=== PATIENT | male | born 1965 | race Caucasian/White ===

== ENCOUNTER → 2022-09-21 10:13 | Outpatient (CLI) | payer BC, SELFPAY ==
--- NOTE | ~2022-09-21 | XR_ITS ---
Lumbosacral Spine: AP and lateral views Clinical History: Pain Findings: The normal lordotic curve is maintained. The vertebral bodies and posterior elements are i ntact. There are mild degenerative disc changes in the lumbar spine, most prominent at L3-L4. The sa croiliac joints are normally outlined. Impression: Minimal degenerative change, as above. Reviewed, dictated and finalized at location . Impression: Minimal degenerative change, as above.
== END ==
PROVIDERS: PCP Family Medicine; Visit Provider Family Medicine
DX: R20.2 Paresthesia of skin (principal); M54.50 Low back pain, unspecified
CPT/HCPCS: 72100

== ENCOUNTER → 2022-10-18 07:13 | Outpatient (CLI) | payer BC, SELFPAY ==
--- NOTE | ~2022-10-18 | MR_ITS ---
EXAMINATION: MR lumbar spine wo con DATE: 10/18/2022 07:39 INDICATION: Low back pain TECHNIQUE: Magnetic resonance imaging (MRI) of the lumbar spine was performed without intravenous con trast. Sequences included sagittal T2-weighted FSE, sagittal T2-weighted FS FSE, sagittal T1-weighted FSE, and axial T2-weighted FSE. COMPARISON: None FINDINGS: 4 degrees lumbar levocurvature. Sagittal alignment is normal. Vertebral body heights are normal. Nor mal marrow signal. Mild disc desiccation and mild disc height loss with annular fissure at L3-L4. Min imal disc desiccation and minimal disc height loss at L4-L5. The conus medullaris terminates at L2. T here is normal signal in the caudal spinal cord. Paravertebral soft tissues are unremarkable. The fol lowing disc levels are specifically discussed: T12-L1: The disc does not extend beyond the endplate margin. There is mild bilateral facet joint oste oarthritis. There is no neural foraminal stenosis. There is no central canal stenosis. L1-L2: The disc does not extend beyond the endplate margin. There is mild bilateral facet joint osteo arthritis. There is no neural foraminal stenosis. There is no central canal stenosis. L2-L3: Minimal bilateral foraminal disc protrusions. There is mild left and mild to moderate right fa cet joint osteoarthritis. There is mild bilateral neural foraminal stenosis. There is no central eden l stenosis. L3-L4: Disc is bulging. There is mild to moderate bilateral facet joint osteoarthritis. There is mild left and mild to moderate right neural foraminal stenosis. There is mild central canal stenosis. L4-L5: Disc is bulging. There is moderate bilateral facet joint osteoarthritis. There is moderate rig ht and mild to moderate left neural foraminal stenosis. There is mild central canal stenosis. L5-S1: Disc is minimally bulging. There is mild left and mild to moderate right facet joint osteoarth ritis. There is minimal bilateral neural foraminal stenosis. There is no central canal stenosis. IMPRESSION: 1. Mild lumbar spondylosis. Reviewed, dictated and finalized at location A. IMPRESSION: 1. Mild lumbar spondylosis.
== END ==
PROVIDERS: PCP Family Medicine; Visit Provider Family Medicine
DX: R20.2 Paresthesia of skin (principal); R20.9 Unspecified disturbances of skin sensation; M47.896 Other spondylosis, lumbar region
CPT/HCPCS: 72148

== ENCOUNTER 2023-09-09 15:28 | Outpatient (CLI) | payer BC, SELFPAY ==
--- NOTE | ~2023-09-09 | MR_ITS ---
EXAMINATION: MR brain/brain stem wo/w con DATE: 09/09/2023 16:27 INDICATION: Short-term memory loss TECHNIQUE: Magnetic resonance imaging (MRI) of the brain and brainstem was performed without and with 20 mL Multihance intravenous contrast. Sequences included sagittal and axial T1-weighted SE, axial d iffusion-weighted FS SE, axial T2*-weighted GRE, axial T2-weighted FLAIR, and axial T2-weighted FSE. Postcontrast axial and coronal T1-weighted SE was obtained. Apparent diffusion coefficient (ADC) maps were created. COMPARISON: None. FINDINGS: There are no areas of restricted diffusion to suggest acute infarction. No intracranial hemorrhage or abnormal intracranial mass lesion. There are scattered areas of nonspecific increased T2-weighted si gnal intensity in the cerebral white matter, predominantly involving the deep and periventricular whi te matter. There are no intraparenchymal signal abnormalities seen on the other pulse sequences. The ventricles are symmetric and normal in size. There are no abnormal extra-axial fluid collections. Cesar w voids are seen in the cerebral arteries on the T2-weighted sequences consistent with their expected patency. The right vertebral artery is dominant. Mild mucosal thickening the bilateral ethmoid sinus es. Indeterminate peripherally T1 hyperintense, centrally T2 hyperintense nodular lesion without defi nitive enhancement extending between the left maxillary and ethmoid sinuses near the ostiomeatal unit . Visualized orbits and soft tissues are unremarkable. There are no areas of abnormal enhancement on the post contrast images. IMPRESSION: 1. Nonspecific mild scattered white matter T2 hyperintensity which is within normal limits for age an d likely sequela of chronic small vessel ischemic disease. No acute intracranial process. 2. Indeterminate nodular lesions near the left ostiomeatal unit projecting into both the left maxilla ry and ethmoid sinuses. Consider sinus CT for further evaluation. Reviewed, dictated and finalized at location A. IMPRESSION: 1. Nonspecific mild scattered white matter T2 hyperintensity which is within no rmal limits for age and likely sequela of chronic small vessel ischemic disease . No acute intracranial process. 2. Indeterminate nodular lesions near the left ostiomeatal unit projecting into both the left maxillary and ethmoid sinuses. Consider sinus CT for further tricia luation.
== END 2023-09-09 15:29 ==
LOC: MICIMG 15:29
PROVIDERS: PCP Family Medicine; Visit Provider Family Medicine
DX: R41.3 Other amnesia (principal); R79.89 Other specified abnormal findings of blood chemistry; R53.83 Other fatigue; F43.21 Adjustment disorder with depressed mood; R20.2 Paresthesia of skin; R90.82 White matter disease, unspecified
CPT/HCPCS: 70553; A9577

== ENCOUNTER 2023-09-20 13:54 | Outpatient (CLI) | payer BC, SELFPAY ==
--- NOTE | ~2023-09-20 | CT_ITS ---
CT sinus wo con Ordering provider: Amanda Huynh MD History: . Maxillary sinus mass . Comparison: None. Technique: Thin slice Scans CT of the paranasal sinuses was performed with coronal and sagittal refor matted images. No IV contrast. . Automated exposure control and iterative reconstruction technique w ere employed. The dose-length product was 265.85 mGy-cm. Findings: NASAL SEPTUM: Mild right nasal septal deviation. OSTEOMEATAL UNITS: Bilaterally patent. Soft tissue density is seen adjacent to the ostiomeatal comple x on the left side which may be a polyp NASAL TURBINATES AND NASOPHARYNX: Left laquita bullosa. Otherwise normal. PARANASAL SINUSES: Left maxillary sinus disease. VISUALIZED MASTOIDS: Normal as visualized. BONES: Normal. SUPERFICIAL SOFT TISSUES/VISUALIZED BRAIN PARENCHYMA: Normal. IMPRESSION: Soft tissue density near to the left ostiomeatal complex which may indicate a polyp. Clinical Further evaluation advised. Mild right nasal septal deviation. Reviewed, dictated and finalized at location A. IMPRESSION: Soft tissue density near to the left ostiomeatal complex which may indicate a p olyp. Clinical Further evaluation advised. Mild right nasal septal deviation.
== END 2023-09-20 13:55 ==
LOC: MICIMG 13:55
PROVIDERS: PCP Family Medicine; Visit Provider Family Medicine
DX: J34.89 Other specified disorders of nose and nasal sinuses (principal)
CPT/HCPCS: 70486

== ENCOUNTER 2025-01-16 15:28 | Outpatient (CLI) | payer BC, SELFPAY ==
--- NOTE | ~2025-01-16 | MR_ITS ---
EXAMINATION: MR brain/brain stem wo/w con DATE: 01/16/2025 16:17 INDICATION: Hypogonadism. TECHNIQUE: Magnetic resonance imaging (MRI) of the brain and brainstem was performed without and with 20 mL MultiHance intravenous contrast. COMPARISON: Brain MRI 09/09/2023 FINDINGS: The pituitary is normal in size with height of 7 mm. There are scattered areas of nonspecific increased T2-weighted signal intensity in the cerebral white matter, which is within normal limits for the patient's age. There is no intracranial hemorrhage, acute infarction, or abnormal intracranial mass lesion. The ventricles are normal in size. The orbits are normal. There is mild mucosal thickening in the ethmoid sinuses. The mastoid air cells are normal. IMPRESSION: 1. Normal aging brain. Normal pituitary. Reviewed, dictated and finalized at location E. [employer]
== END 2025-01-16 15:29 | disposition home or self-care (01) ==
LOC: MICIMG 15:30
PROVIDERS: PCP Family Medicine; Visit Provider Family Medicine
DX: E29.1 Testicular hypofunction (principal)
CPT/HCPCS: 70553; A9577